=== PATIENT | female | born 1970 | race Caucasian/White ===

== ENCOUNTER 2020-09-28 07:31 | Observation (INO) ==
[2020-09-28] MEDS ORDERED: Isovue-370 500 ML BOTTLE IVP ONE (07:48)
[2020-09-28 08:01] LABS: Hematocrit 32.2 % (35.3-44.9); Hemoglobin 10.6 g/dL (11.5-15.4); Mean Corpuscular HGB Conc 32.9 g/dL (31.6-35.5); Mean Corpuscular Hemoglobin 34.1 pg (28.0-33.3); Mean Corpuscular Volume 103.5 fL (83.0-100.0); Mean Platelet Volume 8.7 fL (9.4-12.4); Platelet Count 232 K/mcL (140-400); Red Blood Count 3.11 M/mcL (3.82-4.97); White Blood Count 4.3 K/mcL (4.3-11.1)
[2020-09-28 08:08] LABS: Prothrombin Time 11.7 Seconds (9.4-12.1)
[2020-09-28 08:11] LABS: Activated Partial Thrombo Time 27.9 Seconds (26.0-36.0)
[2020-09-28 08:22] LABS: BUN/Creatinine Ratio 18 (6-26); Blood Urea Nitrogen 15 mg/dL (6-20); Calcium 9.9 mg/dL (8.6-10.3); Carbon Dioxide 27 mEq/L (23-29); Chloride 105 mEq/L (98-107); Glucose 99 mg/dL (70-105); Osmolality,Calculated 287 (280-300); Potassium 3.9 mEq/L (3.5-5.1); Sodium 138 mEq/L (136-145); Troponin I < 0.03 ng/mL (< 0.04); eGFR For African Americans > 60 (> 60); eGFR For Non-African Americans > 60 (> 60)
[2020-09-28] MEDS ORDERED: Ondansetron 4 MG/2 ML VIAL IVP PRN (09:15)
[2020-09-28] MEDS ORDERED: Melatonin 3 MG TABLET PO PRN (09:15)
[2020-09-28] MEDS ORDERED: Acetaminophen 325 MG TABLET PO PRN (09:15)
[2020-09-28] MEDS ORDERED: Aspirin 81 MG TAB.CHEW PO ONE (09:15)
[2020-09-28] MEDS ORDERED: predniSONE 20 MG TABLET PO SCH (09:30)
[2020-09-28] MEDS ORDERED: valACYclovir 500 MG TABLET PO SCH (09:30)
[2020-09-28 11:07] VITALS: BP 120/80
== END 2020-09-28 14:55 | disposition home or self-care (01) ==
LOC: EMEROOARM 07:31 → 3BNU 07:31
PROVIDERS: ADMIT Internal Medicine; ATTEND Internal Medicine